=== PATIENT | female | born 1995 | race Caucasian/White ===

== ENCOUNTER 2022-11-19 21:43 | Emergency (ER) | payer OTHER, SELFPAY ==
--- NOTE | 2022-11-19 21:55 | ECG_ITS ---
Test Reason : CHEST PRESSURE Blood Pressure : / mmHG Vent. Rate : 065 BPM Atrial Rate : 065 BPM P-R Int : 128 ms QRS Dur : 080 ms QT Int : 412 ms P-R-T Axes : 022 040 037 degrees QTc Int : 428 ms Normal sinus rhythm Normal ECG No previous ECGs available Referred By: Generic ED Physician Electronically Signed By:VITALIY ESCAMILLA MD
[2022-11-19 22:05] VITALS: BP 122/88; PULSE 67; RESP 18; TEMP 36.9; O2SAT 100; BMI 44.4
--- NOTE | 2022-11-19 22:16 | PC.NURSE ---
patient was brought in due to patient vitals are stable at this time patient stated she was experiencing some lightheadedness and patient stated she has a history of panic attacks and anxiety patient will continue to be monitored for safety
[2022-11-19 22:21] VITALS: BP 122/88; PULSE 67; RESP 18; TEMP 36.9; O2SAT 100
[2022-11-19 22:31] LABS: MANUAL DIFF FLAG NO
[2022-11-19 22:33] LABS: Basophils Percent Auto 0.5 % (0-2); Eosinophils Absolute Auto 0.2 X10*3/uL (0.0-0.4); Eosinophils Percent Auto 3.2 % (0-4); Hematocrit 33.7 % (37.0-47.0); Hemoglobin 11.6 g/dl (12.0-16.0); Imm Gran Abs Auto 0.01 X10*3/uL (0.00-0.03); Imm Gran Pct Auto 0.2 % (0.0-0.4); Lymphocytes Absolute Auto 2.9 X10*3/uL (1.2-4.9); Lymphocytes Percent Auto 47.7 % (20-40); Mean Corpuscular HGB Conc 34.4 g/dl (31.0-35.0); Mean Corpuscular Hemoglobin 29.9 pg (27.0-33.0); Mean Corpuscular Volume 86.9 fL (80.0-98.0); Mean Platelet Volume 9.3 fL (9.4-12.3); Monocytes Absolute Auto 0.4 X10*3/uL (0.1-1.2); Monocytes Percent Auto 6.9 % (2-11); Neutrophils Absolute Auto 2.5 x10*3/uL (2.0-8.3); Neutrophils Percent Auto 41.5 % (45-73); Platelet Count 337 X10*3/uL (160-400); Red Blood Count 3.88 X10*6/uL (4.20-5.50); Red Cell Distribution Width 12.5 % (11.0-16.0)
[2022-11-19 22:46] LABS: Anion Gap 12 (12-20); Blood Urea Nitrogen 8 mg/dL (9-16); Calcium 9.2 mg/dL (8.4-10.2); Carbon Dioxide 21 mmol/L (22-29); Chloride 109 mmol/L (96-108); Creatinine Clr Calc Pharmacy 143.1; Estimated Glomerular Filt Rate > 60; Glucose Random 111 mg/dL (60-115); Potassium 3.5 mmol/L (3.3-5.1); Sodium 138 mmol/L (135-145)
[2022-11-19 22:57] LABS: Troponin-I High Sensitivity < 2.7 ng/L (<3.5-17.0)
--- NOTE | 2022-11-20 00:46 | ED.GENADULT ---
HPI - General Adult General Chief complaint: Anxiety Stated complaint: chest pressure numbness face and hands Time Seen by Provider: 11/20/22 00:33 Source: patient, RN notes reviewed and old records reviewed Mode of arrival: ambulatory Limitations: no limitations History of Present Illness HPI narrative: 27-year-old female presents for evaluation of chest pressure, shortness of breath and ?numbness. ? Patient reports her symptoms started a few hours prior to arrival She reports that her symptoms were consistent with previous panic attacks However she states that this episode was different because it lasted longer than usual She reports taking 1 of her prescribed clonidine which usually helps her anxiety but this time it did not At the time of my evaluation the patient reports her symptoms have improved significantly but she still has mild chest pressure Patient also takes Ativan and Xanax to help with her symptoms She did start a new oral contraceptive last week Review of Systems Constitutional: Constitutional: Reports as per HPI, Denies chills, Denies fatigue, Denies fever(s) and Denies headache(s) ENT: Denies headache(s) Cardiovascular: Cardiovascular: Reports chest pain, Reports chest pain at rest, Reports rapid heart rate and Reports dyspnea Respiratory: Respiratory: Denies cough and Reports dyspnea Gastrointestinal: Gastrointestinal: Denies abdominal pain, Denies constipation and Denies vomiting Genitourinary: Genitourinary: Denies dysuria Neurologic: Denies headache(s) and Denies focal weakness Psychiatric: Psychiatric: Reports anxiety Endocrine: Endocrine: Denies fatigue PMFSH Social History Social History Advance Directives: No Advance Directives Information Provided: Yes Physical Exam ED Vital Signs: Vital Signs - 24 hr 11/19/22 22:05 11/19/22 22:21 Temperature 98.4 F 98.4 F Pulse Rate 67 67 Respiratory Rate 18 18 Blood Pressure 122/88 122/88 Pulse Oximetry 100 100 Oxygen Delivery Method Room Air Room Air BMI result Body Mass Index 44.4 Const General: healthy appearing, comfortable, no acute distress, alert and awake Nutritional Appearance: well nourished Orientation/consciousness: patient oriented x3 HENMT Head: Yes normocephalic and Yes atraumatic Throat: Yes posterior oropharynx normal Eyes Eyelids: Yes eyelids normal Conjunctivae: conjunctivae normal Sclerae: sclerae normal Corneas: corneas normal Pupils: Equal, round and reactive pupils present EOM: EOMs intact bilaterally Neck Neck: Yes full ROM Resp Effort & Inspection: normal respiratory effort, able to speak in complete sentences and not labored Skin General skin exam: no rashes or lesions noted and elasticity normal Neuro General: patient oriented x3 Cranial nerves: Yes Equal, round and reactive pupils present and Yes Bilaterally intact EOM present Cognition (Neuro): normal cognition Extrem Other: Moving all extremities well without any obvious deformities Medical Decision Making Medical Decision Making MDM Narrative: 27-year-old female with history of anxiety presents for evaluation of chest tightness, shortness of breath, numbness and tingling. All these symptoms are consistent with anxiety. She had a negative workup including EKG and labs. Patient's symptoms have significantly improved and she is stable for discharge Differential Diagnosis Chest pain Anxiety Chest wall pain Bronchitis Pneumonia Panic disorder Lab Data Mild anemia of 11.6 and hematocrit 33.7. No leukocytosis. Patient's electrolytes are within normal limits. Her CO2 was slightly low at 21 which is likely related to hyperventilation. Chloride of 109 and BUN of 8 but creatinine is normal at 0.69. Troponin negative 11/19/22 22:27 11/19/22 22:27 Labs: Lab Results 11/19/22 11/19/22 11/19/22 Range/Units 22:27 22:27 22:27 WBC 6.0 (4.8-10.8) X10*3/uL RBC 3.88 L (4.20-5.50) X10*6/uL Hgb 11.6 L (12.0-16.0) g/dl Hct 33.7 L (37.0-47.0) % MCV 86.9 (80.0-98.0) fL MCH 29.9 (27.0-33.0) pg MCHC 34.4 (31.0-35.0) g/dl RDW 12.5 (11.0-16.0) % Plt Count 337 (160-400) X10*3/uL MPV 9.3 L (9.4-12.3) fL Immature Gran % (Auto) 0.2 (0.0-0.4) % Neut % (Auto) 41.5 L (45-73) % Lymph % (Auto) 47.7 H (20-40) % [place] % (Auto) 6.9 (2-11) % Eos % (Auto) 3.2 (0-4) % Baso % (Auto) 0.5 (0-2) % Lymph # (Auto) 2.9 (1.2-4.9) X10*3/uL [place] # (Auto) 0.4 (0.1-1.2) X10*3/uL Eos # (Auto) 0.2 (0.0-0.4) X10*3/uL Baso # (Auto) 0.0 (0.0-0.2) X10*3/uL Abs Immat Gran (auto) 0.01 (0.00-0.03) X10*3/uL Absolute Neuts (auto) 2.5 (2.0-8.3) x10*3/uL Absolute Nucleated RBC 0.000 (0.0-0.012) X10*3/uL Nucleated RBC % (auto) 0.0 (0.0-0.2) /100WBC Sodium 138 (135-145) mmol/L Potassium 3.5 (3.3-5.1) mmol/L Chloride 109 H (96-108) mmol/L Carbon Dioxide 21 L (22-29) mmol/L Anion Gap 12 (12-20) BUN 8 L (9-16) mg/dL Creatinine 0.69 (0.5-1.4) mg/dL Estim Creat Clear Calc 143.1 Estimated GFR > 60 Random Glucose 111 (60-115) mg/dL Calcium 9.2 (8.4-10.2) mg/dL Troponin I High Sens < 2.7 (<3.5-17.0) ng/L Independent Interpretation I performed an independent interpretation of an: EKG (Sinus rhythm with a rate of 65 beats per minute. No ischemic changes) Discharge Plan Discharge Clinical Impression: Acute anxiety Patient Disposition: Home, Self-Care Instructions: Anxiety (ED) Additional Instructions: Your workup in the emergency department today was reassuring. This includes your blood work as well as your EKG Your symptoms were most likely related to anxiety Continue taking your home medications as prescribed Follow-up with your primary doctor
== END 2022-11-20 01:08 | disposition home or self-care (01) ==
PROVIDERS: Emergency Provider Emergency Medicine
DX: F41.1 Generalized anxiety disorder (principal); F43.0 Acute stress reaction; R07.89 Other chest pain; Z79.899 Other long term (current) drug therapy
CPT/HCPCS: 36415; 80048; 84484; 85025; 93005; 99283

== ENCOUNTER → 2022-11-19 21:55 | Outpatient (BNV) | payer OTHER, SELFPAY | PROVIDERS: Emergency Provider Emergency Medicine; Visit Provider Internal Medicine Cardiovascular Disease | DX: R07.9 Chest pain, unspecified (principal) | CPT/HCPCS: 93010 ==